=== PATIENT | female | born 1965 | race Caucasian/White ===

== ENCOUNTER 2018-02-02 08:00 | Outpatient (CLI) | payer OTHER ==
[2018-02-02 12:56] LABS: HGB - HEMOGLOBIN 12.8 g/dL (12.0-16.0); MEAN CORPUSCULAR HEMOGLOBIN 28.9 pg (27.0-31.0); MEAN CORPUSCULAR VOLUME 85.1 fL (81.0-99.0); RED BLOOD COUNT 4.44 10^6/uL (4.20-5.40); RED CELL DISTRIBUTION WIDTH 13.7 % (12.0-15.0); WHITE BLOOD COUNT 4.6 x10^3/uL (4.8-10.8)
[2018-02-02 13:38] LABS: % IRON SATURATION 13 % (20-50); ALBUMIN 4.1 g/dL (3.2-5.5); ALBUMIN/GLOBULIN RATIO 1.4 (1.0-2.2); ALKALINE PHOSPHATASE 59 IU/L (42-121); ALT ALANINE AMINOTRANSFERASE 18 IU/L (10-60); AST ASPARTATE AMINOTRANSFERASE 23 IU/L (10-42); BILIRUBIN,TOTAL 0.5 mg/dL (0.2-1.0); BUN - BLOOD UREA NITROGEN 19 mg/dL (6-20); CALCIUM 9.2 mg/dL (8.5-10.3); CARBON DIOXIDE - CO2 28 mmol/L (21-32); CHLORIDE 106 mmol/L (101-111); CHOL/HDL RATIO 3.6 (<4.4); CHOLESTEROL 217 mg/dL; CREATININE 0.6 mg/dL (0.4-1.0); GFR - MDRD 105 (>89); GLUCOSE 94 mg/dL (70-100); HDL CHOLESTEROL 60 mg/dL; IRON 49 ug/dL (28-170); LDL CHOLESTEROL,CALCULATED 147 mg/dL; LDL/HDL RATIO 2.5 (<4.4); SODIUM 139 mmol/L (135-145); TOTAL IRON BINDING CAPACITY 389 ug/dL (250-450); TOTAL PROTEIN 7.1 g/dL (6.7-8.2); TRANSFERRIN 278 mg/dL (192-382); VLDL CHOLESTEROL 10 mg/dL
[2018-02-02 13:45] LABS: THYROID STIMULATING HORMONE 1.87 uIU/mL (0.34-5.60)
[2018-02-02 13:50] LABS: FERRITIN 14.6 ng/mL (11.0-306.8)
== END 2018-02-02 08:01 | disposition home or self-care (01) ==
LOC: LAB.WCP 08:00
PROVIDERS: ATTEND Nurse Practitioner
DX: R53.83 Other fatigue (principal); E78.5 Hyperlipidemia, unspecified
CPT/HCPCS: 36415; 80053; 80061; 82728; 83540; 83721; 84443; 84466; 85027

== ENCOUNTER 2018-04-27 09:47 | Outpatient (CLI) | payer OTHER ==
--- NOTE | 2018-04-27 15:14 | XRAY Report ---
Reason: ELBOW PAIN, LEFT Procedure Date: 04/27/2018 Accession Number: [id number] / [id number] Procedure: WCP - Wrist 3 View LT CPT Code: FULL RESULT: EXAM: LEFT WRIST RADIOGRAPHY EXAM DATE: 04/27/2018 10:20 AM. CLINICAL HISTORY: Elbow pain, left. COMPARISON: None. TECHNIQUE: 3 views. FINDINGS: Bones: Normal. No fractures or bone lesions. Joints: Normal. No subluxations. Soft Tissues: Normal. No soft tissue swelling. IMPRESSION: No fracture or dislocation. RADIA
--- NOTE | 2018-04-27 15:29 | XRAY Report ---
Reason: ELBOW PAIN, LEFT Procedure Date: 04/27/2018 Accession Number: [id number] / [id number] Procedure: WCP - Elbow 2 View LT CPT Code: FULL RESULT: EXAM: LEFT ELBOW RADIOGRAPHY EXAM DATE: 04/27/2018 10:20 AM. CLINICAL HISTORY: Elbow pain, left. COMPARISON: None. TECHNIQUE: 2 views. FINDINGS: Bones: Normal. No fractures or bone lesions. Joints: Normal. No effusion. No subluxation. Soft Tissues: Normal. No soft tissue swelling. IMPRESSION: Normal elbow radiography. RADIA
== END 2018-04-27 09:48 | disposition home or self-care (01) ==
LOC: DI.WCP 09:47
PROVIDERS: ATTEND Nurse Practitioner
DX: M25.522 Pain in left elbow (principal)

== ENCOUNTER 2018-08-08 08:00 | Outpatient (CLI) | payer OTHER | END 2018-08-08 23:59 | disposition home or self-care (01) | LOC: LAB.R 08:00 | PROVIDERS: ATTEND Family Medicine | DX: R30.9 Painful micturition, unspecified (principal) | CPT/HCPCS: 87086; 87181 ==

== ENCOUNTER 2019-12-13 08:00 | Outpatient (CLI) | payer BC, OTHER | END 2019-12-13 23:59 | disposition home or self-care (01) | LOC: LAB.R 08:00 | PROVIDERS: ATTEND Family Medicine | DX: N39.0 Urinary tract infection, site not specified (principal) | CPT/HCPCS: 87086 ==

== ENCOUNTER 2020-01-18 14:00 | Outpatient (CLI) | payer BC, OTHER ==
[2020-01-19 13:38] LABS: BILIRUBIN,URINE NEGATIVE (NEGATIVE); GLUCOSE, URINE (UA) NEGATIVE (NEGATIVE); KETONES,URINE (UA) NEGATIVE (NEGATIVE); LEUKOCYTE ESTERASE, URINE SMALL (NEGATIVE); NITRITE,URINE POSITIVE (NEGATIVE); OCCULT BLOOD,URINE NEGATIVE (NEGATIVE); PROTEIN,URINE NEGATIVE (NEGATIVE); UROBILINOGEN,URINE 0.2 (NORMAL) E.U./dL (NORMAL)
[2020-01-19 13:41] LABS: CLARITY,URINE CLEAR (CLEAR)
[2020-01-19 13:48] LABS: BACTERIA,URINE Many /HPF (None Seen); RBC,URINE None Seen /HPF (0-5); SQUAMOUS EPITHELIAL CELL,UR RARE Squamous (<= Few)
== END 2020-01-18 23:59 | disposition home or self-care (01) ==
LOC: LAB.R 14:00
PROVIDERS: ATTEND Family Medicine
DX: R30.0 Dysuria (principal)
CPT/HCPCS: 81001; 81003; 87077; 87086; 87181

== ENCOUNTER 2020-06-12 08:00 | Outpatient (CLI) | payer OTHER | END 2020-06-12 23:59 | disposition home or self-care (01) | LOC: LAB.R 08:00 | PROVIDERS: ATTEND Physician Assistant Medical | DX: N39.0 Urinary tract infection, site not specified (principal) | CPT/HCPCS: 87077; 87086; 87181 ==

== ENCOUNTER 2020-06-21 08:00 | Outpatient (CLI) | payer OTHER | END 2020-06-21 23:59 | disposition home or self-care (01) | LOC: LAB.N 08:00 | PROVIDERS: ATTEND Family Medicine | DX: N39.0 Urinary tract infection, site not specified (principal) | CPT/HCPCS: 87077; 87086; 87181 ==

== ENCOUNTER 2020-07-04 08:00 | Outpatient (CLI) | payer OTHER | END 2020-07-04 23:59 | disposition home or self-care (01) | LOC: LAB.N 08:00 | PROVIDERS: ATTEND Physician Assistant Medical | DX: N39.0 Urinary tract infection, site not specified (principal) | CPT/HCPCS: 87077; 87086; 87181 ==

== ENCOUNTER 2020-08-16 14:01 | Outpatient (CLI) | payer OTHER | END 2020-08-16 23:59 | disposition home or self-care (01) | LOC: LAB.N 14:01 | PROVIDERS: ATTEND Family Medicine | DX: N39.0 Urinary tract infection, site not specified (principal) | CPT/HCPCS: 87086; 87181 ==

== ENCOUNTER 2020-10-17 12:00 | Outpatient (CLI) | payer OTHER | END 2020-10-17 23:59 | disposition home or self-care (01) | LOC: LAB.N 12:00 | PROVIDERS: ATTEND Nurse Practitioner | DX: R30.0 Dysuria (principal) | CPT/HCPCS: 87086; 87181 ==

== ENCOUNTER 2020-10-20 17:45 | Outpatient (CLI) | payer OTHER | END 2020-10-20 23:59 | disposition home or self-care (01) | LOC: LAB.N 17:45 | PROVIDERS: ATTEND Physician Assistant Medical | DX: U07.1 COVID-19 (principal) ==

== ENCOUNTER 2021-01-20 08:00 | Outpatient (CLI) | payer OTHER | END 2021-01-20 23:59 | disposition home or self-care (01) | LOC: LAB.N 08:00 | PROVIDERS: ATTEND Family Medicine | DX: N39.0 Urinary tract infection, site not specified (principal) | CPT/HCPCS: 87077; 87086; 87181 ==

== ENCOUNTER 2021-07-09 08:00 | Outpatient (CLI) | payer OTHER | END 2021-07-10 12:50 | disposition home or self-care (01) | LOC: LAB.N 08:00 | PROVIDERS: ATTEND Family Medicine | DX: N39.0 Urinary tract infection, site not specified (principal) | CPT/HCPCS: 87086; 87181 ==

== ENCOUNTER 2021-12-07 08:00 | Outpatient (CLI) | payer OTHER ==
--- NOTE | 2021-12-08 10:02 | XRAY Report ---
PROCEDURE: Cervical Spine 2 View INDICATIONS: DYSPHAGIA TECHNIQUE: 3 view(s) of the cervical spine were acquired. COMPARISON: None. FINDINGS: Bones: No fractures or dislocations to the C7-T1 level. Straightening of normal cervical lordosis i s seen. Mild degenerative endplate changes are seen at C4-5 through C6-7 levels. The lateral masses o f C1 appear intact on the odontoid view. No suspicious bony lesions. Soft tissues: No prevertebral soft tissue swelling. IMPRESSION: Mild degenerative disc disease in mid to lower cervical spine. No acute fracture or disl ocation. Reviewed by: Olayinka Mott MD on 12/08/2021 10:01 AM PDT Approved by: Olayinka Mott MD on 12/08/2021 10:01 AM PDT Station ID: [id number]
== END 2021-12-07 23:59 | disposition home or self-care (01) ==
LOC: DI.N 08:00
PROVIDERS: ATTEND Family Medicine
DX: R13.10 Dysphagia, unspecified (principal); M47.812 Spondylosis without myelopathy or radiculopathy, cervical region

== ENCOUNTER 2022-04-01 18:26 | Emergency (ER) | payer OTHER ==
[2022-04-01] MEDS ORDERED: PROPOFOL 200 MG/20 ML VIAL IVP STA (18:58)
[2022-04-01] MEDS ORDERED: HYDROmorphone 1 MG/ML CARPUJECT IVP STA (18:58)
[2022-04-01] MEDS ORDERED: ONDANSETRON 4 MG/2 ML VIAL IVP STA (18:58)
--- NOTE | 2022-04-01 19:00 | ED Physician Documentation ---
PD HPI LOWER EXT INJURY - Stated complaint Stated Complaint: L ANKLE INJ - Chief complaint Chief Complaint: Trauma Ext - History obtained from History obtained from: Patient - Additional information Additional information: Otherwise healthy 56-year-old woman was out feeding the horses and they got spooked and kind of ran her over and she injured her left ankle. An isolated injury without head or neck injury. She is not able to walk or bear weight. Pain is severe. PD PAST MEDICAL HISTORY - Past Surgical History Past Surgical History: No - Present Medications Home Medications: Ambulatory Orders Medication Instructions Recorded Confirmed Oxycodone HCl/Acetaminophen 1 - 2 each PO Q6H PRN #20 tablet 04/01/22 [Percocet 5-325 mg Tablet] - Allergies Allergies/Adverse Reactions: Allergies Allergy/AdvReac Type Severity Reaction Status Date / Time No Known Drug Allergies Allergy Verified 04/01/22 18:28 - Social History Does the pt smoke?: No Smoking Status: Never smoker Does the pt drink ETOH?: No Does the pt have substance abuse?: No - Immunizations Immunizations are current?: Yes PD ED PE NORMAL - Vitals Vital signs reviewed: Yes - General General: Alert and oriented X 3, No acute distress - Neck Neck: Supple, no meningeal sign, No bony TTP - Extremities Extremities: Other (Deformity of left ankle consistent with bimalleolar fracture. No proximal fibular tenderness. No foot tenderness. Normal neurovascular function in the foot.) - Neuro Neuro: Alert and oriented X 3, Normal speech Eye Opening: Spontaneous Motor: Obeys Commands Verbal: Oriented GCS Score: 15 Results - Vitals Vitals: Vital Signs - 24 hr 04/01/22 04/01/22 04/01/22 18:28 18:58 19:35 Temperature 36.5 C Heart Rate 92 68 61 Respiratory 18 18 16 Rate Blood Pressure 103/65 132/76 H O2 Saturation 98 98 04/01/22 19:37 Temperature Heart Rate 63 Respiratory 14 Rate Blood Pressure 95/57 L O2 Saturation 99 Oxygen O2 Source Room air - Rads (name of study) Three-view x-ray of the left ankle demonstrates a bimalleolar fracture dislocation Radiology: Final report received, EMP read indepedently Procedures - Splint (location) - Minor LLE Splint applied by: Physician, Tech Type of splint: Fiberglass, Short leg, Posterior, Stirrup Other: Patient tolerated well, No complications, Neurovascular intact, Crutches provided - Procedural sedation Sedation prep: Informed consent, Time out completed, Last meal (4pm), PE performed, ASA 1 - healthy Sedation Medications: propofol (80mg ivp x 1) Mallampati classification: I Patient status during sedation: Responds to tactile Sedation recovery: Recovered uneventfully Time in sedation (Minutes): 10 PD Medical Decision Making - ED course ED course: 56-year-old woman presents with an isolated bimalleolar fracture. It was reduced under sedation and splinted. Pain was much better at that point. Advised on the need for follow-up and likely surgery. Departure - Departure Disposition: 01 Home, Self Care Clinical Impression: Bimalleolar fracture of left ankle Qualifiers: Encounter type: initial encounter Fracture type: closed Qualified Code(s): S82.842A - Displaced bimalleolar fracture of left lower leg, initial encounter for closed fracture Condition: Good Record reviewed to determine appropriate education?: Yes Instructions: ED Fx Ankle General Follow-Up: Orthopedic Care [Provider Group] Prescriptions: Oxycodone HCl/Acetaminophen [Percocet 5-325 mg Tablet] 1 - 2 each PO Q6H PRN #20 tablet PRN Reason: pain Comments: I sent a prescription electronically for painkillers to [facility]. I am also writing a prescription for a knee scooter as follows. Knee scooter, #1, use as directed. . LOS 10 weeks. Diagnosis S82. 842A Call the orthopedic office tomorrow or Tuesday for an appointment, it is likely they will want to get you in pretty soon and arrange for a surgical date. Until then do not walk or bear weight on it, do not remove the splint and do not get it wet. Keep it elevated is much as possible. This is very important. I am prescribing a short course of narcotic pain medication for you. These are potentially dangerous and addictive medications that should be used carefully. These medications may constipate you. Take an itqy-zhz-lbamhrw stool softener (docusate) twice daily with plenty of water while taking these medications. If you go 24 hours without a bowel movement, take mgmp-kkl-srkhbrl miralax, per package instructions. Do not drink or drive while taking these medications. If you received narcotic or sedating medications while in the emergency department, do not drive for 24 hours. Store this medication in a safe, secure place and out of reach of children. It is a violation of federal law to give or sell this medication to another person or to use in a manner other than prescribed. The ED will not refill narcotic prescriptions, including prescriptions lost or stolen. To dispose of unwanted medications: 1. [facility] at [address] in [place] has a medication drop box. They accept prescription medications (in pill form) Tuesday through Tuesday 9:00 a.m. to 5:00 p.m. 2. [facility] [employer] accepts prescription medications (in pill form only) for disposal year round. Call for more information. 3. Contact the [facility] for the next [facility] sponsored prescription drug collection event. , [phone], or [phone]; Note that many narcotic pain relievers also contain Tylenol/acetaminophen. Please ensure that your total dose of acetaminophen from all sources does not exceed 3 g (3000 mg) per day. Forms: Activity restrictions
--- NOTE | 2022-04-01 19:08 | XRAY Report ---
PROCEDURE: Ankle 3 View LT INDICATIONS: Trauma TECHNIQUE: 3 views of the ankle were acquired. COMPARISON: None FINDINGS: Bones: Bimalleolar fracture dislocation with dislocation of the tibiotalar joint. Soft tissues: No tibiotalar joint effusion. Achilles tendon appears normal. IMPRESSION: Bimalleolar fracture dislocation of the left ankle. Reviewed by: Getachew العلي on 04/01/2022 7:07 PM [facility] Approved by: Getachew العلي on 04/01/2022 7:07 PM [facility] Station ID: [id number]
[2022-04-01 19:38] VITALS: BP 95/57
--- NOTE | 2022-04-01 19:52 | XRAY Report ---
PROCEDURE: Ankle 2 View LT INDICATIONS: Postreduction TECHNIQUE: 2 views of the ankle were acquired. COMPARISON: X-ray from earlier today FINDINGS: Bones: Interval reduction of a bimalleolar fracture dislocation demonstrates significantly improved a lignment with persistent displacement. Soft tissues: No tibiotalar joint effusion. Achilles tendon appears normal. IMPRESSION: Postreduction views of bimalleolar fracture with improved alignment. Reviewed by: Getachew العلي on 04/01/2022 7:51 PM [facility] Approved by: Getachew العلي on 04/01/2022 7:51 PM [facility] Station ID: [id number]
[2022-04-01] MEDS ORDERED: oxyCODONE/ACET 5/325 Prepack 4 PO STA (20:04)
== END 2022-04-01 20:27 | disposition home or self-care (01) ==
LOC: ED 18:26
DX: S82.842A Displaced bimalleolar fracture of left lower leg, initial encounter for closed fracture (principal); W55.12XA Struck by horse, initial encounter; Y93.K9 Activity, other involving animal care
CPT/HCPCS: 27810; 73600; 73610; 96374; 96375; 99152; 99283; 99285; J1170; 94770

== ENCOUNTER 2022-04-07 09:31 | Day surgery (SDC) | payer OTHER ==
[2022-04-07] MEDS ORDERED: ACETAMINOPHEN 500 MG TABLET PO ONE (09:36)
[2022-04-07] MEDS ORDERED: CELECOXIB 100 MG CAPSULE PO ONE (09:36)
[2022-04-07] MEDS ORDERED: CEFAZOLIN 2G/50ML 0.9% NS 2 GM/50 ML BAG IV ONE (09:36)
[2022-04-07] MEDS ORDERED: LACTATED RINGERS 1,000 ML IV ONE ×2 (10:03→14:14)
[2022-04-07] MEDS ORDERED: fentaNYL 100 MCG/2 ML VIAL ONE ×2 (10:24→12:35)
[2022-04-07] MEDS ORDERED: MIDAZOLAM 2 MG/2 ML VIAL ONE (10:24)
[2022-04-07] MEDS ORDERED: LIDOCAINE-PF 2% 10 ML AMP SUBQ ONE (10:25)
[2022-04-07] MEDS ORDERED: PROPOFOL 200 MG/20 ML VIAL IVP ONE (10:25)
[2022-04-07] MEDS ORDERED: ROPIVACAINE 0.5% PF 20 ML VIAL ONE (10:26)
--- NOTE | 2022-04-07 10:35 | ANESTHESIA ---
Pre-Anesthesia VS, & Labs - Diagnosis L ankle fx - Procedure ORIF L ankle Vital Signs: Temp Pulse Resp BP Pulse Ox O2 Flow Rate 37.2 C 74 14 104/64 99 04/07/22 09:52 04/07/22 09:52 04/07/22 09:52 04/07/22 09:52 04/07/22 09:52 Height: 5 ft 4 in Weight (kg): 72 kg Body Mass Index: 27.2 BMI Classification: Overweight - NPO >8 hours Last Fluid Intake: PRE-OP MEDS WATER SIPS - Is Patient ?: No - Lab Results Lab results reviewed: Yes Home Medications and Allergies Home Medications: Ambulatory Orders Cranberry Fruit Extract [Cranberry] 500 mg PO DAILY 04/05/22 Garlic 1,000 mg PO DAILY 04/05/22 Krill/Om-3/Dha/Epa/Phospho/Ast [Krill Oil 500 mg Softgel] 1 each PO DAILY 04/05/22 Multivit-Min/Folic Acid/Biotin [Hair, Skin and Nails Caplet] 1 each PO DAILY 04/05/22 Multivitamin 1 each PO DAILY 04/05/22 Vitamin B Complex 1 each PO DAILY 04/05/22 Cranberry Fruit Extract [Cranberry] 500 mg PO DAILY 04/05/22 Garlic 1,000 mg PO DAILY 04/05/22 Krill/Om-3/Dha/Epa/Phospho/Ast [Krill Oil 500 mg Softgel] 1 each PO DAILY 04/05/22 Multivit-Min/Folic Acid/Biotin [Hair, Skin and Nails Caplet] 1 each PO DAILY 04/05/22 Multivitamin 1 each PO DAILY 04/05/22 Vitamin B Complex 1 each PO DAILY 04/05/22 Allergies/Adverse Reactions: Allergies Allergy/AdvReac Type Severity Reaction Status Date / Time No Known Drug Allergies Allergy Verified 04/01/22 18:28 Anes History & Medical History - Anesthetic History Anesthesia Complications: reports: No previous complications Family history of Anesthesia Complications: Denies Family history of Malignant Hyperthermia: Denies - Medical History Cardiovascular: reports: None Pulmonary: reports: None Gastrointestinal: reports: None Urinary: reports: Chronic bladder infection Musculoskeletal: reports: Osteoarthritis Endocrine/Autoimmune: reports: None Skin: reports: None Smoking Status: Never smoker - Surgical History Eyes Ears Nose Throat (EENT): reports: Tonsil/Adenoidectomy Orthopedic: reports: Arthroscopic surgery Exam General: Alert, Oriented x3, Cooperative Dental: WNL Mouth Openin Fingerbreadth Neck Mobility: Normal Mallampati classification: II Respiratory: Lungs clear, Normal breath sounds, No respiratory distress Cardiovascular: Regular rate Neurological: Normal speech Mental/Cognitive Status: Alert/Oriented X3, Normal for patient Cognitive Status: Within normal limits Plan Anesthesia Type: General, Popliteal Block Consent for Procedure(s) Verified and Reviewed: Yes Code Status: Attempt Resuscitation ASA classification: 2-Mild systemic disease Is this case an emergency?: No
[2022-04-07] MEDS ORDERED: HYDROmorphone 0.5 MG/0.5 ML SYRINGE IVP PRN (10:36)
[2022-04-07] MEDS ORDERED: fentaNYL 100 MCG/2 ML VIAL IVP PRN (10:36)
[2022-04-07] MEDS ORDERED: METOCLOPRAMIDE 10 MG/2 ML VIAL IVP PRN (10:36)
[2022-04-07] MEDS ORDERED: ONDANSETRON 4 MG/2 ML VIAL IVP PRN (10:36)
[2022-04-07] MEDS ORDERED: ePHEDrine 50 MG/ML VIAL IVP PRN (10:36)
[2022-04-07] MEDS ORDERED: NALOXONE 0.4 MG/ML VIAL IVP PRN (10:36)
[2022-04-07] MEDS ORDERED: MORPHINE 2 MG/ML CARPUJECT IVP PRN (10:36)
[2022-04-07] MEDS ORDERED: ATROPINE ABBOJECT 1 MG/10 ML SYRINGE IVP PRN (10:36)
[2022-04-07] MEDS ORDERED: LIDOCAINE MPF 2%-EPI 1:200000 20 ML VIAL ONE (10:46)
[2022-04-07] MEDS ORDERED: BUPIVACAINE 0.5% PF 30 ML VIAL ONE (10:46)
[2022-04-07] MEDS ORDERED: VANCOMYCIN 1 GM VIAL ONE ×2 (10:47→12:42)
[2022-04-07] MEDS ORDERED: LACTATED RINGERS 1,000 ML IV SCH (11:00)
[2022-04-07] MEDS ORDERED: ONDANSETRON 4 MG/2 ML VIAL ONE (11:52)
[2022-04-07] MEDS ORDERED: SEVOFLURANE 250 ML LIQUID INH ONE (13:04)
[2022-04-07] MEDS ORDERED: BUPIVACAINE 0.25% PF 30 ML VIAL ONE (13:05)
[2022-04-07] MEDS ORDERED: VANCOMYCIN 1 GM VIAL MC ONE (13:44)
[2022-04-07] MEDS ORDERED: BUPIVACAINE 0.25% PF 30 ML VIAL SUBQ ONE ×2 (13:44)
[2022-04-07] MEDS ORDERED: ACETAMINOPHEN 500 MG TABLET PO PRN (14:18)
[2022-04-07] MEDS ORDERED: ONDANSETRON ODT 4 MG TABLET TL PRN (14:18)
[2022-04-07] MEDS ORDERED: oxyCODONE 5 MG TABLET PO PRN (14:18)
--- NOTE | 2022-04-07 14:19 | OPERATIVE REPORT ---
Operative Report - General Procedure Date: 04/07/22 Planned Procedure: Open reduction internal fixation bimalleolar fracture left ankle Pre-Op Diagnosis: Closed, displaced bimalleolar fracture left ankle Procedure Performed: Open reduction internal fixation medial and lateral malleolus left ankle with Arthrex plates to lateral and medial malleolus Post Op Diagnosis: Same as preoperative diagnosis - Procedure Note Primary Surgeon: Kris Vernon MD Secondary Surgeon: Lilia Bell PAC Anesthesia Provider: Diego Stanley CRNA Anesthesia Technique: General LMA, Regional block Estimated Blood Loss (mL): 10 Indications: This is a relatively healthy and active 56-year-old woman who sustained an isolated injury to her left ankle. She was hit by her horses standing at home, fell and twisted left ankle with a painful left ankle. She was seen in the emergency room where she had a bimalleolar fracture dislocation. The dislocation was reduced, the ankle was splinted and she was referred to our office for orthopedic evaluation. She has an unstable bimalleolar fracture with fracture lateral malleolus above the joint line and fracture of the medial malleolus at and just slightly above the joint line. Posterior malleolus was intact. Her skin was intact, no fracture blisters, compartments soft, neurovascular intact. She was in agreement to open reduction internal fixation left ankle and has signed an informed consent at our office. Findings: The fracture of the lateral malleolus was oblique above the ankle mortise. The medial malleolus fracture was transverse but angled slightly proximally and just at and above the ankle mortise. The medial talar dome had cartilage injury with three 2 to 3 mm articular cartilage loose fragments. The medial talar dome was impacted over an area of about 2 cm. The amount of impaction was about a millimeter. Complications: None - Other Other Information/Narrative: The patient was brought to the operating room, placed in the supine position with a bump underneath the left buttock. A bone ramp was placed beneath the left leg to elevate the left leg. A pneumatic tourniquet was applied over cast padding to the proximal left thigh. The C arm image intensifier was covered with sterile drape. A timeout procedure was performed by the entire operating room team and all were in agreement. After satisfactory general anesthesia was obtained, the left lower extremity was prepped and draped in a sterile manner usual fashion. She also received a popliteal block. The pneumatic tourniquet was elevated 250 mmHg. A longitudinal incision was made just posterior to the fibula. The fracture of the fibula was exposed and reduced with internal rotation and traction. A K wire was used to stabilize the fracture as well as a bone clamp. A lag screw was inserted from anterior to posterior and proximal to distal to compress the lateral malleolar fracture. This gave nice fracture stability. A neutralizing locking fibular plate was then applied about the lateral malleolus and proximally. The least 3 screws were placed above and below the fracture through the plate with the distal screws being locking and the proximal screws nonlocking. Good fixation to the fibula was achieved and much improvement to the ankle mortise stability. The C- arm image intensifier was used intermittently during the procedure. Next a second incision was made over the medial ankle beginning above the joint and extending below the tip of the medial malleolus, anteromedial approach. Care was taken to protect the saphenous vein and posterior tibial tendon. A medial arthrotomy was performed to the ankle and extraction of loose articular fragments. The fracture of the medial malleolus was reduced with a small pointed bone clamp and a K wire. The K wire was inserted from the tip of the medial malleolus, across the reduced fracture. A 2 pronged medial locking buttress placed by Arthrex was applied and stabilized. This provided good fixation and was supplemented by intramedullary screw from tip of medial malleolus measuring 60 mm. Intraoperative x-ray showed good alignment of the fixation ankle mortise. The syndesmosis was grossly stable to push pull with the bone clamp. The tourniquet was deflated after 90 minutes. The wounds were thoroughly irrigated. Vancomycin powder was applied to each wound. The wound was closed in layers with 2 0 strata fix suture, 3-0 subcuticular and katy to the medial side and lateral side. Xeroform, dry sterile gauze, cast padding and a 4 inch fiberglass stirrup to the ankle was applied with Rai wrap. She tolerated the procedure well. There was good return of circulation after deflation of the pneumatic tourniquet. The ankle had good motion and stability. She received 2 g of Ancef intravenously and tolerated the procedure well. A physician assistant teaching professor was medically necessary to help with prepping and draping, positioning, protection of vital structures, assistance during the procedure including wound closure, dressing and/or splinting.A physician assistant teaching professor was medically necessary to help with prepping and draping, positioning, protection of vital structures, assistance during the procedure including wound closure, dressing and/or splinting.
--- NOTE | 2022-04-07 15:31 | ANESTHESIA POST OP EVALUATION ---
Anesthesia Post Eval - Post Anesthesia Eval Vitals: Last Vital Signs Temp 37.2 C 04/07/22 14:46 Pulse 74 04/07/22 14:46 Resp 14 04/07/22 14:46 BP 104/90 H 04/07/22 14:46 Pulse Ox 99 04/07/22 14:46 O2 Flow Rate CV Function Including HR & BP: Stable Pain Control: Satisfactory Nausea & Vomiting: Negative Mental Status: Baseline Respiratory Status: Airway Patent Hydration Status: Satisfactory Anesthesia Complications: None
[2022-04-07] MEDS ORDERED: oxyCODONE 5 MG TABLET ONE (15:37)
[2022-04-07 15:56] VITALS: BP 124/69
== END 2022-04-07 09:32 | disposition home or self-care (01) ==
LOC: SDS 09:31
PROVIDERS: ATTEND Orthopaedic Surgery
DX: S82.842A Displaced bimalleolar fracture of left lower leg, initial encounter for closed fracture (principal)
CPT/HCPCS: 27814; A9270; J0690; J2795; J3370; J3490; J7120

== ENCOUNTER 2022-05-24 09:15 | Outpatient (CLI) | payer OTHER ==
--- NOTE | 2022-05-24 11:33 | XRAY Report ---
PROCEDURE: Ankle 3 View LT INDICATIONS: LEFT ANKLE FRACTURE TECHNIQUE: 3 views of the ankle were acquired. COMPARISON: CT left ankle 04/03/2022, left ankle radiographs 04/01/2022 FINDINGS: Postsurgical changes from plate and screw fixation of the previously demonstrated bimalleolar fractur e dislocation. Alignment is significantly improved compared to previous fixation radiographs. Hardwar e appears intact. IMPRESSION: Post surgical changes from reduction of the previously demonstrated bimalleolar fracture dislocation with improved alignment. Reviewed by: Jose G Cuenca MD on 05/24/2022 11:32 AM PDT Approved by: Jose G Cuenca MD on 05/24/2022 11:32 AM PDT Station ID: [id number]
== END 2022-05-24 23:59 | disposition home or self-care (01) ==
LOC: DI.WOS 09:15
PROVIDERS: ATTEND Orthopaedic Surgery
DX: S82.842D Displaced bimalleolar fracture of left lower leg, subsequent encounter for closed fracture with routine healing (principal)

== ENCOUNTER 2022-11-12 08:00 | Outpatient (CLI) | payer OTHER ==
[2022-11-12 18:34] LABS: FECAL OCCULT BLOOD (FIT) NEGATIVE (NEGATIVE)
== END 2022-11-12 23:59 | disposition home or self-care (01) ==
LOC: LAB.N 08:00
PROVIDERS: ATTEND Family Medicine
DX: Z12.11 Encounter for screening for malignant neoplasm of colon (principal)
CPT/HCPCS: 82274

== ENCOUNTER 2023-01-05 10:22 | Outpatient (CLI) | payer OTHER ==
--- NOTE | 2023-01-06 16:06 | Mammography Report ---
BILATERAL DIGITAL SCREENING MAMMOGRAM 3D/2D: 01/05/2023 CLINICAL: Routine screening. Comparison is made to exams dated: 09/08/2021 mammogram and 04/01/2014 mammogram - [facility]. There are scattered areas of fibroglandular density in both breasts (category b / 25%-50% glandular t issue). There is an asymmetry in the right breast posterior depth central to the nipple seen on the craniocau sofia view only. No other significant masses, calcifications, or other findings are seen in either breast. IMPRESSION: INCOMPLETE: NEEDS ADDITIONAL IMAGING EVALUATION The asymmetry in the right breast is indeterminate. A diagnostic mammogram and ultrasound is recomme nded. Based on the Tyrer Cuzick model (a risk assessment model) the patients lifetime risk is 8.4% and her 10 year risk is 2.9%. According to the ACR, ACS, and NCCN guidelines, an annual breast MRI exam ebenezer g with mammogram is recommended if the patients lifetime risk is 20% or greater. This exam was interpreted at Station ID: [id number]. NOTE: For mammograms, a report in lay terms will be sent to the patient. Approximately 15% of breast malignancies will not be visualized mammographically. In the management of a palpable breast mass, a negative mammogram must not discourage biopsy of a clinically suspicious lesion. Electronically Signed By: Lesvia Patel M.D., PH.D eb/:01/06/2023 00:37:53 ACR BI-RADS Category 0: Incomplete 3340F PARENCHYMAL PATTERN: (A) - The breast(s) demonstrate(s) scattered fibroglandular densities. BI-RADS CATEGORY: (0) - 0 Mammo and [place] [id number] Immediate follow-up LATERALITY: (B)
== END 2023-01-05 10:23 | disposition home or self-care (01) ==
LOC: DI.N 10:22
DX: Z12.31 Encounter for screening mammogram for malignant neoplasm of breast (principal); R92.323 Mammographic fibroglandular density, bilateral breasts; R92.8 Other abnormal and inconclusive findings on diagnostic imaging of breast

== ENCOUNTER 2023-02-07 09:55 | Outpatient (CLI) | payer OTHER ==
--- NOTE | 2023-02-08 13:18 | Mammography Report ---
UNILATERAL RIGHT DIGITAL DIAGNOSTIC MAMMOGRAM 3D/2D: 02/07/2023 CLINICAL: Patient returns today to evaluate an asymmetry in the right breast. Comparison is made to exams dated: 01/05/2023 mammogram, 09/08/2021 mammogram, and 04/01/2014 mammogram - [facility]. There are scattered areas of fibroglandular density in the right breast (category b / 25%-50% glandul ar tissue). The asymmetry in the right breast posterior depth central to the nipple seen on the craniocaudal view only is not seen in additional views. No other significant masses or calcifications are seen in the breast. IMPRESSION: BENIGN The asymmetry in the right breast seen on the screening mammogram likely respresents superimposed fi broglandular tissue and is benign. There is no mammographic evidence of malignancy. Return to annual mammogram screening schedule is rec ommended. Based on the Tyrer Cuzick model (a risk assessment model) the patients lifetime risk is 8.4% and her 10 year risk is 2.9%. According to the ACR, ACS, and NCCN guidelines, an annual breast MRI exam ebenezer g with mammogram is recommended if the patients lifetime risk is 20% or greater. This exam was interpreted at Station ID: [id number]. NOTE: For mammograms, a report in lay terms will be sent to the patient. Approximately 15% of breast malignancies will not be visualized mammographically. In the management of a palpable breast mass, a negative mammogram must not discourage biopsy of a clinically suspicious lesion. Electronically Signed By: Nancy lechuga/:02/07/2023 10:30:27 ACR BI-RADS Category 2: Benign Finding(s) 3342F PARENCHYMAL PATTERN: (A) - The breast(s) demonstrate(s) scattered fibroglandular densities. BI-RADS CATEGORY: (2) - 2 Mammogram [id number] return to screening LATERALITY: (B)
== END 2023-02-07 09:56 | disposition home or self-care (01) ==
LOC: DI 09:55
PROVIDERS: ATTEND Family Medicine
DX: R92.8 Other abnormal and inconclusive findings on diagnostic imaging of breast (principal); R92.321 Mammographic fibroglandular density, right breast

== ENCOUNTER 2023-02-10 12:36 | Outpatient (CLI) | payer OTHER ==
--- NOTE | 2023-02-10 15:27 | XRAY Report ---
PROCEDURE: Hand 3 View BILAT INDICATIONS: PAIN TECHNIQUE: 3 views of each hand(s) acquired. COMPARISON: None. FINDINGS: Bones: No fractures or dislocations. No suspicious bony lesions. Mild osteoarthritic changes are pr esent bilaterally, most pronounced at the triscaphe joints and the first carpometacarpal joints. Soft tissues: No suspicious soft tissue calcifications or masses. IMPRESSION: Mild osteoarthritis. Reviewed by: Lani Pressley MD on 02/10/2023 3:25 PM [facility] Approved by: Lani Pressley MD on 02/10/2023 3:25 PM [facility] Station ID: [id number]
== END 2023-02-10 12:37 | disposition home or self-care (01) ==
LOC: DI 12:36
PROVIDERS: ATTEND Family Medicine
DX: M25.531 Pain in right wrist (principal); M25.532 Pain in left wrist; M19.042 Primary osteoarthritis, left hand; M19.041 Primary osteoarthritis, right hand

== ENCOUNTER 2023-04-01 14:45 | Outpatient (CLI) | payer OTHER | END 2023-04-01 15:00 | disposition home or self-care (01) | LOC: LAB.N 14:45 | PROVIDERS: ATTEND Physician Assistant Medical | DX: N30.01 Acute cystitis with hematuria (principal) | CPT/HCPCS: 87077; 87086; 87181 ==

== ENCOUNTER 2023-05-24 08:00 | Outpatient (CLI) | payer OTHER | END 2023-05-24 23:59 | disposition home or self-care (01) | LOC: LAB.N 08:00 | PROVIDERS: ATTEND Specialist | DX: R30.0 Dysuria (principal) | CPT/HCPCS: 87077; 87086; 87181 ==

== ENCOUNTER 2023-07-07 08:00 | Outpatient (CLI) | payer OTHER | END 2023-07-07 23:59 | disposition home or self-care (01) | LOC: LAB.N 08:00 | PROVIDERS: ATTEND Physician Assistant Medical | DX: N30.90 Cystitis, unspecified without hematuria (principal) | CPT/HCPCS: 87077; 87086; 87181 ==